=== PATIENT | male | born 1955 | race Two or more races ===

== ENCOUNTER 2019-06-15 20:00 | Emergency (ER) | payer OTHER ==
[~2019-06-15] VITALS: Ht 172.7 cm; Wt 75.0 kg
[2019-06-15] MEDS ORDERED: SODIUM CHLORIDE 0.9% 1,000 ML IV ONE (20:33)
[2019-06-15 21:12] LABS: BASOPHILS % 0.3 % (0.0-2.0); EOSINOPHILS % 0.2 % (0.0-5.0); HEMATOCRIT. 30.4 % (42.0-52.0); HEMOGLOBIN. 10.3 g/dL (14.0-18.0); LYMPHOCYTES % 7.3 % (20.0-50.0); MEAN CORPUSCULAR VOLUME 88.6 fL (80.0-94.0); MONOCYTES % 4.1 % (2.0-8.0); NEUTROPHILS % 88.1 % (40.0-76.0); PLATELET 200 x1000/uL (130-400); RED BLOOD CELL COUNT 3.43 mill/uL (4.7-6.1); RED CELL DISTRIBUTION WIDTH 13.6 % (11.6-14.6)
[2019-06-15 21:16] LABS: CHLORIDE 112 mEq/L (98-107)
[2019-06-15 21:53] LABS: CLARITY URINE CLOUDY (CLEAR); COLOR URINE YELLOW (YELLOW); KETONES URINE NEGATIVE (NEGATIVE); LEUKOCYTE ESTERASE URINE 2+ (NEGATIVE); NITRITE URINE NEGATIVE (NEGATIVE); OCCULT BLOOD URINE 2+ (NEGATIVE); PH URINE 5.5 (4.5-8.0); PROTEIN URINE 3+ (NEGATIVE); SPECIFIC GRAVITY URINE 1.014 (1.005-1.030); UROBILINOGEN URINE 0.2 E.U./dL (0.2-1.0)
[2019-06-15] MEDS ORDERED: CEFTRIAXONE 1 G PREMIX 50 ML IV ONE (22:45)
[2019-06-15] MEDS ORDERED: AMLODIPINE 5MG TABLET PO ONE (23:15)
[2019-06-16] MEDS ORDERED: HYDRALAZINE 20MG/ML VIAL IV ONE (00:15)
[2019-06-16 01:46] VITALS: BP 156/83
== END 2019-06-16 02:39 | disposition short-term general hospital (02) ==
LOC: ER 20:00
DX: E11.649 Type 2 diabetes mellitus with hypoglycemia without coma (principal); N30.00 Acute cystitis without hematuria; I12.9 Hypertensive chronic kidney disease with stage 1 through stage 4 chronic kidney disease, or unspecified chronic kidney disease; E11.22 Type 2 diabetes mellitus with diabetic chronic kidney disease; N18.9 Chronic kidney disease, unspecified; R94.31 Abnormal electrocardiogram [ECG] [EKG]; Z79.84 Long term (current) use of oral hypoglycemic drugs; Z79.899 Other long term (current) drug therapy
CPT/HCPCS: 36415; 71045; 80053; 81003; 82962; 85025; 87086; 93005; 96365; 96375; 99285; J0360; J0696; J7030

== ENCOUNTER 2022-02-20 19:26 | Emergency (ER) | payer OTHER ==
[~2022-02-20] VITALS: Ht 170.2 cm; Wt 73.0 kg
[2022-02-20] MEDS ORDERED: ONDANSETRON HCL 4MG/2ML INJ IV STA (19:36)
[2022-02-20] MEDS ORDERED: MECLIZINE 25MG TABLET PO ONE (20:00)
[2022-02-20 20:50] VITALS: BP 137/71
[2022-02-20 20:55] LABS: BASOPHILS % 0.8 % (0.0-2.0); EOSINOPHILS % 1.5 % (0.0-5.0); HEMATOCRIT. 37.8 % (42.0-52.0); MEAN CORPUSCULAR VOLUME 90.3 fL (80.0-94.0); MEAN PLATELET VOLUME 10.2 fl (7.4-10.4); MONOCYTES % 7.6 % (2.0-8.0); NEUTROPHILS % 74.1 % (40.0-76.0); PLATELET 141 x1000/uL (130-400); RED BLOOD CELL COUNT 4.18 mill/uL (4.7-6.1); RED CELL DISTRIBUTION WIDTH 14.5 % (11.6-14.6)
[2022-02-20 21:09] LABS: CHLORIDE 99 mEq/L (98-107)
== END 2022-02-21 00:25 | disposition home or self-care (01) ==
LOC: ER 19:26
DX: R42 Dizziness and giddiness (principal); R11.2 Nausea with vomiting, unspecified; E11.9 Type 2 diabetes mellitus without complications; E78.00 Pure hypercholesterolemia, unspecified; I10 Essential (primary) hypertension
CPT/HCPCS: 36415; 71045; 80053; 83880; 85025; 93005; 96374; 99285; J2405; J8597